=== PATIENT | male | born 1950 | race Caucasian/White ===

== ENCOUNTER → 2016-11-17 | Outpatient (CLI) | payer OTHER ==
[~2016-11-17] VITALS: Ht 177.8 cm; Wt 83.9 kg
[~2016-11-17] MED LIST: ANTI DEPRESSANT MED; ATORVASTATIN CA20 MG PO; CITALOPRAM HBR20 MG PO; FLEXERIL10 MG PO; NOHOMEMEDS; PERCOCET 5/31 TABLET PO; VALIUM5 MG PO
== END | disposition home or self-care (01) ==
LOC: AMB 08:23
PROC: 0DBE8ZX Excision of Large Intestine, Via Natural or Artificial Opening Endoscopic, Diagnostic (ICD-10-PCS; principal; 2016-11-17)
DX: Z12.11 Encounter for screening for malignant neoplasm of colon (principal); K57.90 Diverticulosis of intestine, part unspecified, without perforation or abscess without bleeding; D12.5 Benign neoplasm of sigmoid colon; K64.9 Unspecified hemorrhoids; E78.00 Pure hypercholesterolemia, unspecified; Z85.46 Personal history of malignant neoplasm of prostate; R06.09 Other forms of dyspnea
CPT/HCPCS: 88305; J1100; J2405

== ENCOUNTER 2017-05-28 15:35 | Emergency (ER) | payer OTHER ==
[~2017-05-28] VITALS: Ht 180.3 cm; Wt 87.0 kg
[2017-05-28 20:45] VITALS: BP 137/76
== END 2017-05-28 20:46 | disposition home or self-care (01) ==
LOC: EME 15:35
DX: S61.214A Laceration without foreign body of right ring finger without damage to nail, initial encounter (principal); W23.0XXA Caught, crushed, jammed, or pinched between moving objects, initial encounter; Z23 Encounter for immunization; E78.00 Pure hypercholesterolemia, unspecified
CPT/HCPCS: 73130; 99281; 99284

== ENCOUNTER 2017-08-24 23:20 | Emergency (ER) | payer OTHER ==
[~2017-08-24] VITALS: Ht 177.8 cm; Wt 85.9 kg
[2017-08-25 01:12] VITALS: BP 119/93
== END 2017-08-25 01:13 | disposition home or self-care (01) ==
LOC: EXP 23:20 → EME 23:20 → EXP 08-25 01:13
DX: S61.214A Laceration without foreign body of right ring finger without damage to nail, initial encounter (principal); W31.2XXA Contact with powered woodworking and forming machines, initial encounter; E78.5 Hyperlipidemia, unspecified
CPT/HCPCS: 99281; 99283